=== PATIENT | female | born 1985 | race Caucasian/White ===

== ENCOUNTER 2016-10-21 08:33 | Emergency (ER) | payer OTHER ==
[~2016-10-21] VITALS: Ht 170.2 cm; Wt 59.0 kg
[~2016-10-21 08:33] MED LIST: MICRONOR0.35 MG PO; MOTRIN800 MG PO
[2016-10-21 10:04] LABS: ADD MIUA? YES; BILIRUBIN NEGATIVE; BLOOD LARGE; COLOR DK YELLOW ((YELLOW)); GLUCOSE (STRIP) NEGATIVE; KETONES 15; LEUKOCYTES NEGATIVE; NITRITE NEGATIVE; PH, URINE 5.5 (5-8); PROTEIN (STRIP) TRACE; SPECIFIC GRAVITY 1.028 (1.000-1.030); UROBILINOGEN 0.2 MG/DL (0.2-1.0)
[2016-10-21 10:09] LABS: EOSINOPHIL (%) 0.5 % (0-5); EOSINOPHIL COUNT 0.1 K/uL (0-0.3); HEMATOCRIT 28.3 % (36.0-46.0); IMMATURE GRANULOCYTE (%) 0.2 % (0.0-0.7); IMMATURE GRANULOCYTE COUNT 0.2 K/uL; LYMPHOCYTE COUNT 2.3 K/uL (1.0-2.8); MCH 28.9 PG (29.0-34.0); MCHC 33.6 G/DL (30.0-36.0); MONOCYTE (%) 4.9 % (3-12); MONOCYTE COUNT 0.5 K/uL (0-0.8); NEUTROPHIL (%) 69.7 % (45-76); NEUTROPHIL COUNT 6.5 K/uL (1.8-6.4); PLATELET COUNT 371 K/uL (156-360); RBC DIS.WIDTH-CV 12.2 % (11.8-14.6); RBC DIS.WIDTH-SD 36.7 % (39-53); RED BLOOD COUNT 3.29 M/uL (3.80-5.20); WHITE BLOOD COUNT 9.3 K/uL (4.1-10.2)
[2016-10-21 10:30] LABS: QUANTITATIVE HCG 22.6 MIU/ML
[2016-10-21 10:33] LABS: CHLORIDE 101 mEq/L (99-109); POTASSIUM 3.8 mEq/L (3.7-5.4); SODIUM 134 mEq/L (136-147)
[2016-10-21 10:35] LABS: GLUCOSE 111 mg/dL (70-99)
[2016-10-21 10:37] LABS: ANION GAP 11 MEQ/L (2-14)
[2016-10-21 10:38] LABS: WHITE BLOOD CELLS NONE SEEN /HPF (0-5)
[2016-10-21 10:39] LABS: GFR ESTIMATE (CALCULATED) > 59 mL/min/
[2016-10-21 10:39] LABS: BACTERIA 1+; CASTS NONE SEEN /LPF; CRYSTALS NONE SEEN; EPITHELIAL CELLS 2+; MUCUS 2+; UCUL ADDED? NO
[2016-10-21 10:40] LABS: UREA NITROGEN (BUN) 12 mg/dL (9-23)
[2016-10-21] MEDS ORDERED: [UNRECOGNIZED DRUG - OTHER] PO (14:30)
[2016-10-21 15:39] VITALS: BP 115/61
== END 2016-10-21 15:40 | disposition home or self-care (01) ==
LOC: EME 08:33
PROVIDERS: Emergency Medicine
DX: N93.9 Abnormal uterine and vaginal bleeding, unspecified (principal); R55 Syncope and collapse; D64.9 Anemia, unspecified; F17.200 Nicotine dependence, unspecified, uncomplicated
CPT/HCPCS: 76801; 80048; 81003; 84702; 85025; 86850; 86900; 86901; 99281; 99285; J7030